=== PATIENT | female | born 1990 | race Caucasian/White ===

== ENCOUNTER 2016-08-15 13:52 | Emergency (ER) | payer SELFPAY ==
[2016-08-15 14:12] VITALS: TEMP 98.4
--- NOTE | 2016-08-15 14:24 | C.PDOC ---
History Of Present Illness 26 y/o female presents to ED with complaints of right pelvis pain radiating to lower back for 1 month. Patient also complaints of malodorous urine for 3 days. Patient had a in November and states developing similar symptoms since then on and off. Patient denies dysuria, fever, chills, n/v/d or any other complaints at this time. Time Seen by Provider: 08/15/16 14:21 Chief Complaint (Nursing): Female Genitourinary History Per: Patient History/Exam Limitations: no limitations Onset/Duration Of Symptoms: Days Current Symptoms Are (Timing): Still Present Associated Symptoms: Back Pain, Urinary Symptoms. denies: Fever, Chills, Nausea , Vomiting, Diarrhea Past Medical History Reviewed: Historical Data, Nursing Documentation, Vital Signs Vital Signs: Last Vital Signs Temp 98.4 F 08/15/16 14:08 Pulse 106 H 08/15/16 14:08 Resp 20 08/15/16 14:08 BP 116/74 08/15/16 14:08 Pulse Ox 97 08/15/16 15:30 Surgical History: Family History: States: Unknown Family Hx - Social History Hx Tobacco Use: Yes Hx Alcohol Use: No Hx Substance Use: No - Immunization History Hx Tetanus Toxoid Vaccination: No Hx Influenza Vaccination: No Hx Pneumococcal Vaccination: No Review Of Systems Constitutional: Negative for: Fever, Chills Respiratory: Negative for: Shortness of Breath Gastrointestinal: Positive for: Abdominal Pain. Negative for: Nausea, Vomiting , Diarrhea Genitourinary: Positive for: Pelvic Pain. Negative for: Dysuria, Frequency Skin: Negative for: Rash Neurological: Negative for: Weakness, Headache Physical Exam - Physical Exam Appears: Non-toxic, No Acute Distress Skin: Normal Color, Warm Head: Atraumatic, Normacephalic Throat: Normal Neck: Normal ROM Gastrointestinal/Abdominal: Soft, No Tenderness, No Guarding, No Rebound Pelvic: Vaginal Discharge Extremity: Normal ROM Neurological/Psych: Oriented x3, Normal Speech, Normal Cognition ED Course And Treatment O2 Sat by Pulse Oximetry: 97 (RA) Pulse Ox Interpretation: Normal Disposition Counseled Patient/Family Regarding: Diagnosis, Need For Followup, Rx Given - Disposition Referrals: [facility] [Outside] [facility] [Outside] Disposition: HOME/ ROUTINE Disposition Time: 16:22 Condition: STABLE Additional Instructions: Seguimiento con marin gineclogo en 2-3 parks; Si no puede xin a marin mdico esta semana, trate de hacer el appoimtment para 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 [place] los medicamentos refugio prescritos. [place] en la vagina. Tylenol o Motrin para el dolor si es necesario. Regrese a ER para cualquier empeoramiento de los s ntomas. Prescriptions: Doxycycline Hyclate 100 mg PO BID #28 capsule Forms: Gen Discharge Inst Welsh - Clinical Impression Clinical Impression: PID (pelvic inflammatory disease) - PA / AMBULATORY SERVICE REPRESENTATIVE / Resident Statement MD/DO has reviewed & agrees with the documentation as recorded. - Scribe Statement The provider has reviewed the documentation as recorded by the Scribevelin [place] All medical record entries made by the Scribe were at my direction and personally dictated by me. I have reviewed the chart and agree that the record accurately reflects my personal performance of the history, physical exam, medical decision making, and the department course for this patient. I have also personally directed, reviewed, and agree with the discharge instructions and disposition.
[2016-08-15 14:49] LABS: RBC URINE 2 /hpf (0-3); URINE BACTERIA RARE (<OCC); URINE BILIRUBIN NEGATIVE (NEGATIVE); URINE BLOOD NEGATIVE (NEGATIVE); URINE COLOR Yellow (YELLOW); URINE GLUCOSE (UA) NORMAL (Normal); URINE KETONE NEGATIVE (NEGATIVE); URINE LEUKOCYTE ESTERASE 1+ Leu/uL (Negative); URINE PROTEIN NEGATIVE (NEGATIVE); URINE UROBILINOGEN NORMAL mg/dL (0.2-1.0); WBC URINE 1 /hpf (0-5)
[2016-08-15] MEDS ORDERED: cefTRIAXone (Rocephin) 250 mg Inj IM STA (15:24)
[2016-08-15] MEDS ORDERED: cefTRIAXone 250 MG in Lidocaine Hydrochloride 1 ML IM ONE (16:00)
[2016-08-15 16:37] VITALS: BP 123/85; PULSE 84; RESP 16; O2SAT 98
== END 2016-08-15 16:36 | disposition home or self-care (01) ==
LOC: C.ER 13:52
DX: N73.9 Female pelvic inflammatory disease, unspecified (principal); B95.1 Streptococcus, group B, as the cause of diseases classified elsewhere
CPT/HCPCS: 81001; 84703; 87086; 87491; 87591; 96372; 99283; J0696

== ENCOUNTER 2017-05-18 00:35 | Emergency (ER) | payer SELFPAY ==
[2017-05-18 00:50] VITALS: BP 132/84; TEMP 98.1
--- NOTE | 2017-05-18 01:13 | C.PDOC ---
History Of Present Illness pt presents with some abrasions and swelling of the right toes 2,3,4. Pt has been wearing tight boots prior to the pain/abrasions. No f/c/ Able to bear weight Time Seen by Provider: 05/18/17 01:13 Chief Complaint (Nursing): Lower Extremity Problem/Injury History Per: Patient History/Exam Limitations: no limitations Onset/Duration Of Symptoms: Days Current Symptoms Are (Timing): Still Present Severity: Mild Pain Scale Rating Of: 3 Recent travel outside of the [place]: No Additional History Per: Patient - Ankle/Foot Description Of Injury: Other (abrassions) Currently Unable To: Bear Weight Past Medical History Reviewed: Historical Data, Nursing Documentation, Vital Signs Vital Signs: Last Vital Signs Temp 98.1 F 05/18/17 00:44 Pulse 92 H 05/18/17 00:44 Resp 20 05/18/17 00:44 BP 132/84 05/18/17 00:44 Pulse Ox 96 05/18/17 01:13 Surgical History: Family History: States: No Known Family Hx - Social History Hx Tobacco Use: Yes Hx Alcohol Use: Yes Hx Substance Use: No - Immunization History Hx Tetanus Toxoid Vaccination: No Hx Influenza Vaccination: No Hx Pneumococcal Vaccination: No Review Of Systems Constitutional: Negative for: Fever, Chills Skin: Positive for: Rash, Lesions ( r foot 2,3,4 digit) Neurological: Negative for: Weakness Psych: Positive for: Anxiety Physical Exam - Physical Exam Appears: Non-toxic, No Acute Distress Skin: Rash, Other (abrassions dorsum r toe2,3,4) Extremity: Normal ROM, Tenderness, Swelling (mildr toe 2,3,4) Pulses: Left Dorsalis Pedis: Normal, Right Dorsalis Pedis: Normal Neurological/Psych: Oriented x3 Gait: Steady ED Course And Treatment O2 Sat by Pulse Oximetry: 96 Pulse Ox Interpretation: Normal Medical Decision Making Medical Decision Making: Upon provider reevaluation patient is feeling better, is medically stable, and requires no further treatment in the ED at this time. Patient will be discharged home with Rx for keflex, motrin . Counseling was provided and all questions were answered regarding diagnosis and need for follow up with the referred clinic. There is agreement to discharge plan. Return if symptoms persist or worsen. Disposition Counseled Patient/Family Regarding: Studies Performed, Diagnosis, Need For Followup, Rx Given - Disposition Referrals: Podiatry Clinic [Outside] Disposition: HOME/ ROUTINE Disposition Time: 01:13 Condition: FAIR Additional Instructions: Por favor regrese si tiene fiebre, escalofros, esparcimiento de enrojecimiento del pie, secrecin maloliente Prescriptions: Cephalexin [Keflex] 500 mg PO TID #21 capsule Ibuprofen [Motrin Tab] 800 mg PO TID PRN #12 tab PRN Reason: Pain, Moderate (4-7) Instructions: Wound Care (DC), Skin Abrasions (DC) Forms: [employer] (Occitan) Print Language: TAJIK - Clinical Impression Clinical Impression: Abrasion foot/toe
[2017-05-18 01:37] VITALS: PULSE 88; RESP 18; O2SAT 99
== END 2017-05-18 01:37 | disposition home or self-care (01) ==
LOC: C.ER 00:35
DX: S90.414A Abrasion, right lesser toe(s), initial encounter (principal); W49.09XA Other specified item causing external constriction, initial encounter; Y92.9 Unspecified place or not applicable